=== PATIENT | male | born 1945 | race Hispanic/Latino ===

== ENCOUNTER 2017-07-21 19:59 | Observation (INO) | payer OTHER, MEDICARE ==
[~2017-07-21] VITALS: Ht 172.7 cm; Wt 85.0 kg
[2017-07-21] MEDS ORDERED: POTASSIUM CHLORIDE 20 MEQ ERTAB PO ONE (20:24)
[2017-07-21] MEDS ORDERED: SODIUM CHLORIDE 0.9% 1000ML 1,000 ML IV ONE (20:24)
[2017-07-21 20:37] LABS: HEMATOCRIT 39.8 % (42-54); MEAN CORPUSCULAR HEMOGLOBIN 30.2 pg (27.0-33.0); MEAN CORPUSCULAR HGB CONC 34.8 g/dL (32.0-36.0); MEAN CORPUSCULAR VOLUME 86.6 fL (79-99); PLATELET COUNT (AUTO) 247 K/uL (130-400); RED BLOOD CELL COUNT(AUTO) 4.59 MIL/uL (4.50-6.20); RED CELL DISTRIBUTION WIDTH 13.1 % (11.0-15.5); WHITE BLOOD COUNT (AUTO) 8.2 K/uL (4.8-10.8)
[2017-07-21 20:43] LABS: APPEARANCE,URINE Clear (CLEAR); BILIRUBIN,URINE Negative (NEGATIVE); COLOR,URINE Yellow (YELLOW); GLUCOSE, URINE (UA) 500 mg/dL (NEGATIVE); KETONES,URINE Negative (NEGATIVE); LEUKOCYTE ESTERASE ,URINE Negative (NEGATIVE); NITRATE,URINE Negative (NEGATIVE); OCCULT BLOOD,URINE Negative (NEGATIVE); PROTEIN,URINE Negative (NEGATIVE); UROBILINOGEN,URINE 0.2 mg/dL (0.2-1.0)
[2017-07-21 20:49] LABS: INR 0.88 (0.85-1.15); PARTIAL THROMBOPLASTIN TIME 26.4 SEC (26.3-35.5); PROTHROMBIN TIME 9.3 SEC (9.6-11.6)
[2017-07-21 21:05] LABS: BAND NEUTROPHILS % (MANUAL) 9 % (0-2); EOSINOPHILS % (MANUAL) 6 % (1-6); LYMPHOCYTES % (MANUAL) 20 % (22-44); METAMYELOCYTES % 1 % (0-0); MONOCYTES % (MANUAL) 13 % (2-9); REACTIVE LYMPHOCYTES 1 % (0-0); SEGMENTED NEUTROPHILS % 50 % (40-70)
[2017-07-21 21:06] LABS: MAN.DIFF COMMENT-IMPRESSION MANUAL DIFFERENTIAL
[2017-07-21 21:10] LABS: ALANINE AMINOTRANSFERASE 64 U/L (12-78); ALBUMIN 3.2 g/dL (3.5-5.0); ASPARTATE AMINOTRANSFERASE 38 U/L (10-37); BILIRUBIN,TOTAL 0.5 mg/dL (0.2-1.0); CARBON DIOXIDE 32 mmol/L (21-32); CHLORIDE 98 mmol/L (101-111); CREATINE KINASE MB 4.8 ng/mL (0.5-3.6); CREATINE KINASE, TOTAL 338 U/L (21-232); CREATININE 1.2 mg/dL (0.5-1.5); GLOMERULAR FILTR. RATE CALC 64 mL/min (>60); GLUCOSE,RANDOM 237 mg/dL (70-105); MYOGLOBIN 148 ng/mL (10-92); SODIUM SERUM 137 mmol/L (136-145); TOTAL PROTEIN, SERUM 6.7 g/dL (6.0-8.3); TROPONIN I < 0.04 ng/mL (0.00-0.06); UREA NITROGEN, BLOOD 18 mg/dL (7-18)
[2017-07-21 21:13] LABS: POTASSIUM 2.7 mmol/L (3.5-5.1)
[2017-07-21 21:53] LABS: BACTERIA,URINE Rare /HPF (None Seen); RBC,URINE None Seen /HPF (0-1); SQUAMOUS EPITHELIAL CELL,UR 0-2 /HPF (0-2); WBC,URINE 0-1 /HPF (0-1)
[2017-07-21] MEDS ORDERED: POTASSIUM CHLORIDE 20MEQ/100ML 100 ML IV PRN ×2 (23:15→23:45)
[2017-07-21] MEDS ORDERED: POTASSIUM CHLORIDE 20 MEQ ERTAB PO PRN (23:15)
[2017-07-21] MEDS ORDERED: POTASSIUM CHLORIDE 10% ELIXIR 20 MEQ/15 ML UDCUP PO PRN (23:15)
[2017-07-21] MEDS ORDERED: LIDOCAINE HCL-MPF 1% 2ML VIAL IJ PRN (23:15)
[2017-07-21] MEDS ORDERED: SODIUM CHLORIDE 0.9% 1000ML 1,000 ML IV SCH ×2 (23:15→23:43)
[2017-07-21] MEDS ORDERED: HYDRALAZINE HCL 20 MG/ML VIAL ONE (23:24)
[2017-07-21] MEDS ORDERED: HYDRALAZINE HCL 20 MG/ML VIAL IV PRN (23:45)
[2017-07-21] MEDS ORDERED: DEXTROSE 50%-WATER 50 ML DISP.SYRIN IV PRN (23:45)
[2017-07-21] MEDS ORDERED: GLUCAGON 1MG KIT 1 MG ML IM PRN (23:45)
[2017-07-21] MEDS: METRONIDAZOLE 500MG/100ML BAG 100 ML IV SCH (23:45)
[2017-07-21] MEDS ORDERED: ACETAMINOPHEN 325 MG TAB PO PRN ×2 (23:45)
[2017-07-21] MEDS ORDERED: ONDANSETRON HCL MDV 20ML 2 MG/ML VIAL IV PRN (23:45)
[2017-07-21] MEDS ORDERED: LIDOCAINE HCL-MPF 1% 2ML VIAL IVP PRN (23:45)
[2017-07-22] MEDS ORDERED: PRAV40TA3 PO (03:32)
[2017-07-22] MEDS ORDERED: LOSA1TAB54 PO (03:32)
[2017-07-22] MEDS ORDERED: ALLO100T PO (03:32)
[2017-07-22] MEDS ORDERED: AEC81 PO (03:32)
[2017-07-22] MEDS ORDERED: CHLO25TA23 PO (03:32)
[2017-07-22] MEDS ORDERED: METO100T14 PO (03:32)
[2017-07-22] MEDS ORDERED: METO50TA18 PO (03:32)
[2017-07-22] MEDS ORDERED: METF10004 PO (03:32)
[2017-07-22] MEDS ORDERED: DIPH1TAB PO (03:32)
[2017-07-22 04:30] VITALS: BP 167/86
[2017-07-22 06:16] LABS: HEMATOCRIT 37.8 % (42-54); MEAN CORPUSCULAR HEMOGLOBIN 30.6 pg (27.0-33.0); MEAN CORPUSCULAR HGB CONC 35.5 g/dL (32.0-36.0); MEAN CORPUSCULAR VOLUME 86.2 fL (79-99); PLATELET COUNT (AUTO) 221 K/uL (130-400); RED BLOOD CELL COUNT(AUTO) 4.38 MIL/uL (4.50-6.20); RED CELL DISTRIBUTION WIDTH 13.2 % (11.0-15.5); WHITE BLOOD COUNT (AUTO) 6.7 K/uL (4.8-10.8)
[2017-07-22 06:46] LABS: ALANINE AMINOTRANSFERASE 55 U/L (12-78); ALBUMIN 2.8 g/dL (3.5-5.0); ASPARTATE AMINOTRANSFERASE 34 U/L (10-37); BILIRUBIN,TOTAL 0.4 mg/dL (0.2-1.0); CARBON DIOXIDE 34 mmol/L (21-32); CHLORIDE 105 mmol/L (101-111); CREATINE KINASE MB 3.5 ng/mL (0.5-3.6); CREATINE KINASE, TOTAL 242 U/L (21-232); GLOMERULAR FILTR. RATE CALC 79 mL/min (>60); GLUCOSE,RANDOM 170 mg/dL (70-105); MYOGLOBIN 92 ng/mL (10-92); SODIUM SERUM 144 mmol/L (136-145); TROPONIN I < 0.04 ng/mL (0.00-0.06); UREA NITROGEN, BLOOD 12 mg/dL (7-18)
[2017-07-22 07:17] LABS: POTASSIUM 2.9 mmol/L (3.5-5.1)
[2017-07-22] MEDS: INSULIN HUMULIN R 100 UNIT/ML 3ML SQ SCH ×4 (07:30→21:00)
[2017-07-22 08:20] VITALS: BP 157/93
[2017-07-22] MEDS ORDERED: MAGNESIUM 2GM PREMIX 50ML 50 ML IV SCH (09:00)
[2017-07-22] MEDS: PANTOPRAZOLE SODIUM 40 MG TABLET.DR PO SCH (09:07)
[2017-07-22] MEDS: POTASSIUM CHLORIDE 10% ELIXIR 20 MEQ/15 ML UDCUP PO PRN ×3 (09:07→18:16)
[2017-07-22] MEDS: METRONIDAZOLE 500MG/100ML BAG 100 ML IV SCH ×2 (09:08→18:09)
[2017-07-22 11:33] VITALS: BP 155/90
[2017-07-22] MEDS: ALLOPURINOL 100 MG TABLET PO SCH (11:55)
[2017-07-22] MEDS: LOSARTAN/HYDROCHLOROTHIAZIDE 50-12.5MG TABLET PO SCH (11:56)
[2017-07-22] MEDS: NS-20 MEQ KCL 1000ML 1,000 ML IV SCH (11:56)
[2017-07-22 15:40] VITALS: BP 164/76
[2017-07-22] MEDS ORDERED: METOPROLOL TARTRATE 50 MG TAB PO SCH (17:00)
[2017-07-22] MEDS: METFORMIN HCL 500 MG TABLET PO SCH (18:09)
[2017-07-22 19:32] VITALS: BP 148/90
[2017-07-22] MEDS ORDERED: ATORVASTATIN CALCIUM 10 MG TABLET PO SCH (21:00)
[2017-07-22] MEDS ORDERED: POTASSIUM CHLORIDE 20 MEQ in SODIUM CHLORIDE 0.9% 1000ML 1,000 ML IV SCH (23:43)
[2017-07-23] MEDS: POTASSIUM CHLORIDE 20 MEQ ERTAB PO PRN ×4 (00:10→15:13)
[2017-07-23] MEDS: METRONIDAZOLE 500MG/100ML BAG 100 ML IV SCH ×2 (00:11→07:55)
[2017-07-23 00:45] VITALS: BP 144/85
[2017-07-23 04:00] VITALS: BP 148/95
[2017-07-23] MEDS: NS-20 MEQ KCL 1000ML 1,000 ML IV SCH (04:22)
[2017-07-23 05:49] LABS: MAGNESIUM 1.7 mg/dL (1.80-2.40); POTASSIUM 3.3 mmol/L (3.5-5.1)
[2017-07-23] MEDS: INSULIN HUMULIN R 100 UNIT/ML 3ML SQ SCH ×2 (06:43→12:32)
[2017-07-23 07:32] VITALS: BP 154/93
[2017-07-23] MEDS: METFORMIN HCL 500 MG TABLET PO SCH (07:55)
[2017-07-23] MEDS ORDERED: METOPROLOL TARTRATE 50 MG TAB PO SCH (09:00)
[2017-07-23] MEDS ORDERED: ASPIRIN 81 MG EC TAB PO SCH (09:00)
[2017-07-23] MEDS: LOSARTAN/HYDROCHLOROTHIAZIDE 50-12.5MG TABLET PO SCH (09:06)
[2017-07-23] MEDS: PANTOPRAZOLE SODIUM 40 MG TABLET.DR PO SCH (09:07)
[2017-07-23] MEDS: ALLOPURINOL 100 MG TABLET PO SCH (09:07)
[2017-07-23] MEDS ORDERED: LOSA100T29 PO (10:01)
[2017-07-23] MEDS ORDERED: POTA10TA14 PO (10:01)
[2017-07-23] MEDS ORDERED: CHLORPROMAZINE HCL 25 MG/ML 1ML AMP IM SCH (10:15)
[2017-07-23 11:43] VITALS: BP 159/92
[2017-07-23 14:07] LABS: CREATININE 1.1 mg/dL (0.5-1.5); POTASSIUM 3.5 mmol/L (3.5-5.1)
== END 2017-07-23 16:30 | disposition home or self-care (01) ==
LOC: EDH 19:59 → EDHIP 21:48 → 3DH 07-22 02:11
PROVIDERS: ADMIT Internal Medicine; ATTEND Internal Medicine
DX: E87.6 Hypokalemia (principal); E78.5 Hyperlipidemia, unspecified; I10 Essential (primary) hypertension; E11.9 Type 2 diabetes mellitus without complications; K52.9 Noninfective gastroenteritis and colitis, unspecified; R06.6 Hiccough
CPT/HCPCS: 36415 ×3; 71045; 80048 ×2; 80053 ×2; 81001; 82550 ×2; 82553 ×2; 82948 ×5; 83605 ×2; 83735 ×2; 83874 ×2; 84132; 84484 ×2; 85025; 85027; 85610; 85730; 87040 ×2; 87088; 87507; 93005; 96361; 96365; 96366 ×2; 96367; 96368; 96372; 99285; G0378 ×43; J0360; J1815 ×2; J3230; J3475; J3480; J3490 ×5; J7030 ×2; Q0161; C9113

== ENCOUNTER 2018-07-13 19:19 | Emergency (ER) | payer OTHER, MEDICARE ==
[~2018-07-13 19:19] MED LIST: AEC81 PO; ALLO100T PO; CHLO25TA23 PO; DIPH1TAB PO; LOSA100T58 PO; METF-446 PO; METO100T14 PO; METO50TA18 PO; POTA10TA14 PO; PRAV40TA3 PO
[2018-07-13] MEDS ORDERED: IBUPROFEN 600 MG TABLET ONE (19:51)
== END 2018-07-13 20:14 | disposition home or self-care (01) ==
LOC: EDH 19:19
DX: S83.8X2A Sprain of other specified parts of left knee, initial encounter (principal); M17.12 Unilateral primary osteoarthritis, left knee; E11.9 Type 2 diabetes mellitus without complications; E78.5 Hyperlipidemia, unspecified; I10 Essential (primary) hypertension; X50.1XXA Overexertion from prolonged static or awkward postures, initial encounter; Y93.89 Activity, other specified; Y92.098 Other place in other non-institutional residence as the place of occurrence of the external cause; Y99.8 Other external cause status
CPT/HCPCS: 73562

== ENCOUNTER → 2018-10-09 | Outpatient (CLI) | payer OTHER, MEDICARE ==
[2018-10-09 14:05] VITALS: BP 156/84
== END | disposition home or self-care (01) ==
LOC: WHH 08:30
PROVIDERS: ATTEND Family Medicine
DX: L03.116 Cellulitis of left lower limb (principal); E11.9 Type 2 diabetes mellitus without complications; I10 Essential (primary) hypertension; I25.10 Atherosclerotic heart disease of native coronary artery without angina pectoris; E78.5 Hyperlipidemia, unspecified; M17.12 Unilateral primary osteoarthritis, left knee; M10.9 Gout, unspecified; G47.33 Obstructive sleep apnea (adult) (pediatric)
CPT/HCPCS: G0463

== ENCOUNTER 2018-10-24 08:25 | Outpatient (CLI) | payer OTHER, MEDICARE ==
[2018-10-24 08:59] VITALS: BP 151/88
== END 2018-10-24 13:59 | disposition home or self-care (01) ==
LOC: WHH 08:25
PROVIDERS: ATTEND Family Medicine
DX: L03.116 Cellulitis of left lower limb (principal); E11.628 Type 2 diabetes mellitus with other skin complications; L98.8 Other specified disorders of the skin and subcutaneous tissue; I10 Essential (primary) hypertension; I25.10 Atherosclerotic heart disease of native coronary artery without angina pectoris; E78.5 Hyperlipidemia, unspecified; G47.33 Obstructive sleep apnea (adult) (pediatric); M10.9 Gout, unspecified; M17.12 Unilateral primary osteoarthritis, left knee
CPT/HCPCS: G0463

== ENCOUNTER → 2018-12-28 | Outpatient (CLI) | payer OTHER, MEDICARE | END | disposition home or self-care (01) | LOC: SHCH 15:42 | PROVIDERS: ATTEND Internal Medicine Cardiovascular Disease | DX: I35.8 Other nonrheumatic aortic valve disorders (principal); I25.10 Atherosclerotic heart disease of native coronary artery without angina pectoris; I10 Essential (primary) hypertension; E11.9 Type 2 diabetes mellitus without complications; E78.5 Hyperlipidemia, unspecified | CPT/HCPCS: 93306 ==

== ENCOUNTER 2023-08-26 12:34 | Emergency (ER) | payer MEDICARE ==
[~2023-08-26] VITALS: Ht 172.7 cm; Wt 82.6 kg
[~2023-08-26 12:34] MED LIST changes: -CHLO25TA23 PO; +CHLO25TA68 PO; -LOSA100T58 PO; +LOSA100T59 PO
[2023-08-26] MEDS: MORPHINE 4 MG SYG IVP ONE (13:25)
[2023-08-26] MEDS: ONDANSETRON 4MG INJ IVP ONE (13:25)
[2023-08-26 13:43] LABS: BASOPHILS # (AUTO) 0.05 K/uL (0.00-0.20); BASOPHILS % (AUTO) 0.6 % (0.0-5.0); EOSINOPHILS # (AUTO) 0.27 K/uL (0.00-0.70); EOSINOPHILS % (AUTO) 3.5 % (0.0-8.0); HEMATOCRIT 44.4 % (42-54); IMMATURE GRANULOCYTE ABSOLUTE 0.03 K/uL (0-1); LYMPHOCYTES # (AUTO) 1.3 K/uL (1.0-4.8); MEAN CORPUSCULAR HEMOGLOBIN 28.9 pg (27.0-33.0); MEAN CORPUSCULAR HGB CONC 33.6 g/dL (32.0-36.0); MONOCYTES # (AUTO) 0.7 K/uL (0.1-1.0); MONOCYTES % (AUTO) 9.6 % (3.0-13.0); NEUTROPHILS # (AUTO) 5.3 K/uL (1.8-7.7); NEUTROPHILS % (AUTO) 68.9 % (40.0-77.0); PLATELET COUNT (AUTO) 195 K/uL (130-400); RED BLOOD CELL COUNT(AUTO) 5.16 MIL/uL (4.50-6.20); RED CELL DISTRIBUTION WIDTH 12.9 % (11.0-15.5); WHITE BLOOD COUNT (AUTO) 7.7 K/uL (4.8-10.8)
[2023-08-26 14:14] LABS: POTASSIUM 3.1 mmol/L (3.5-5.1)
[2023-08-26 14:28] LABS: APPEARANCE,URINE CLEAR (CLEAR); BILIRUBIN,URINE NEGATIVE (NEGATIVE); COLOR,URINE LIGHT-YELLOW (YELLOW); GLUCOSE, URINE (UA) >=1000 mg/dL (NEGATIVE); KETONES,URINE NEGATIVE (NEGATIVE); LEUKOCYTE ESTERASE ,URINE NEGATIVE Leu/uL (NEGATIVE); NITRATE,URINE NEGATIVE (NEGATIVE); OCCULT BLOOD,URINE NEGATIVE (NEGATIVE); PROTEIN,URINE 20 mg/dL (NEGATIVE); UROBILINOGEN,URINE 0.2 mg/dL (0.2-1.0)
[2023-08-26 14:33] LABS: ADD UA MICROSCOPIC YES
[2023-08-26 14:34] LABS: RBC,URINE 0-1 /HPF (0-1); SQUAMOUS EPITHELIAL CELL,UR RARE /HPF (0-2); WBC,URINE 0-1 /HPF (0-1)
[2023-08-26 15:15] VITALS: BP 170/84; PULSE 63; RESP 17; O2SAT 97
[2023-08-26] MEDS ORDERED: NAPR-1196 PO (15:37)
[2023-08-26] MEDS: POTASSIUM CHLORIDE 10% ELIXIR 20 MEQ/15 ML UDCUP PO ONE (15:48)
== END 2023-08-26 16:00 | disposition home or self-care (01) ==
LOC: EDH 12:34
DX: S20.211A Contusion of right front wall of thorax, initial encounter (principal); E87.6 Hypokalemia; E11.9 Type 2 diabetes mellitus without complications; M19.90 Unspecified osteoarthritis, unspecified site; I10 Essential (primary) hypertension; Z79.899 Other long term (current) drug therapy; Z79.84 Long term (current) use of oral hypoglycemic drugs; Z79.82 Long term (current) use of aspirin; W18.39XA Other fall on same level, initial encounter; Y93.89 Activity, other specified; Y92.89 Other specified places as the place of occurrence of the external cause; Y99.8 Other external cause status
CPT/HCPCS: 99285; 70450; 96374; 96375; 84484; 80048; 85025; 81001; 36415; 72125; 71250; 74176; 93005; J2405; J2270

== ENCOUNTER 2025-01-07 18:02 | Emergency (ER) | payer MEDICARE, MEDICAID ==
[~2025-01-07] VITALS: Ht 172.7 cm; Wt 83.0 kg
[~2025-01-07 18:02] MED LIST changes: +NAPR-1196 PO; -PRAV40TA3 PO; +PRAV40TA62 PO
--- NOTE | 2025-01-07 18:10 | ERN ---
ED Note History of Present Illness Stated Complaint: ELEVATED BP, HEADACHE Chief Complaint: Headache Time Seen by MD: 18:05 Dictation: PATIENT IS A 79-YEAR-OLD MALE HERE WITH HIS WITH COMPLAINTS OF AN OCCIPITAL HEADACHE BILATERAL ONSET ON AWAKENING THESE MORNING HE SAID HE WHEN HE CHECKED HIS BLOOD PRESSURE AT HOME HIS BLOOD PRESSURE WAS IN THE 150S AND 160S THAT HE THOUGHT THIS WAS TOO HIGH. HE SAID HE HAD SEEN HIS ANCHOR TACKER'S LAST WEEK WOULD STOPPED METOPROLOL HOWEVER HE TOOK ONE THIS MORNING BECAUSE HE FELT LIKE HE NEEDED IT. HE DID NOT TAKE ANYTHING FOR PAIN PRIOR TO ARRIVAL. HE IS ALERT AND ORIENTED X4 SPEECH IS CLEAR NIH IS 0. THE HEADACHE WAS NOT A THUNDERBEAT HEADACHE. CURRENT BLOOD PRESSURE 157/88 IN TRIAGE Allergies: Coded Allergies: No Known Allergies (Unverified Allergy, 09/08/12) Home Meds Active Scripts Naproxen (Naproxen) 250 Mg Tablet, 250 MG PO BID for 5 Days, #10 TAB Prov:ARLINE MENESES MD 08/26/23 Potassium Chloride (Potassium Chloride) 10 Meq Tablet.er, 10 MEQ PO DAILY, #30 TAB Prov:BINTA TORRES MD 07/23/17 Losartan Potassium (Losartan Potassium) 100 Mg Tablet, 100 MG PO DAILY, #30 TAB Prov:BINTA TORRES MD 07/23/17 Reported Medications Diphenoxylate HCl/Atropine (Lomotil Tablet) 1 Each Tablet, 1 EACH PO AD PRN for AFTER EACH LOOSE STOOL, TAB 07/22/17 Chlorpromazine HCl (Chlorpromazine HCl) 25 Mg Tablet, 25 MG PO Q8HPRN PRN for NAUSEA/VOMITING, TAB 07/22/17 Pravastatin Sodium (Pravastatin Sodium) 40 Mg Tablet, 40 MG PO HS, TAB 07/22/17 Allopurinol (Allopurinol) 100 Mg Tablet, 100 MG PO DAILY, TAB 07/22/17 Metformin HCl (Metformin HCl) 1,000 Mg Tablet, 1000 MG PO BIDMEALS, TAB 07/22/17 Metoprolol Tartrate (Metoprolol Tartrate) 50 Mg Tablet, 50 MG PO DAILYDINNER, TAB 07/22/17 Metoprolol Tartrate (Metoprolol Tartrate) 100 Mg Tablet, 100 MG PO DAILY, TAB 07/22/17 Aspirin (ASPIRIN 81 MG ECTAB) 81 Mg Ectab, 81 MG PO DAILY, TAB.EC 07/22/17 Past Medical History Past Medical History: Arthritis, Diabetes-Type II, Heart Disease, Hypertension Surgical History: None Surgical History Other: HEART CATH RN Note Reviewed/Agreed w/PFSH: Yes Review of System Dictation CONSTITUTIONAL: NEGATIVE EXCEPT FOR HPI HEAD/FACE: NEGATIVE EXCEPT FOR HPI EENT: NEGATIVE EXCEPT FOR HPI RESPIRATORY: NEGATIVE EXCEPT FOR HPI GASTROINTESTINAL/ABDOMINAL: NEGATIVE EXCEPT FOR HPI GENITOURINARY: NEGATIVE EXCEPT FOR HPI MUSCULOSKELETAL: NEGATIVE EXCEPT FOR HPI INTEGUMENTARY: NEGATIVE EXCEPT FOR HPI NEUROLOGICAL/PSYCH: NEGATIVE EXCEPT FOR HPI OCCIPITAL HEADACHE HEMATOLOGIC/LYMPHATIC: NEGATIVE EXCEPT FOR HPI ALL SYSTEMS NEGATIVE, EXCEPT NOTED ABOVE. 13 POINT REVIEW OF SYSTEMS ASSESSED AND ALL NEGATIVE EXCEPT FOR ABOVE. Initial Vital Sign VS Vital Signs Date Time Temp Pulse Resp B/P (MAP) Pulse Ox O2 Delivery O2 Flow Rate FiO2 01/07/25 18:03 97.9 85 16 156/97 100 Room Air 0 Physical Exam Dictation EXAM VITAL SIGNS REVIEWED GENERAL APPEARANCE: ALERT, ORIENTED X 3, MILD ACUTE DISTRESS, WELL DEVELOPED, NOURISHED. HEAD AND FACE: NON-TRAUMATIC. EYES: PERRL, PINK CONJUNCTIVAS, EYELID NO TRAUMA, ANTERIOR CHAMBER WITH ARCUS SENILIS. EARS: PINNAS INTACT AND NO SIGNS OF TRAUMA OR ERYTHEMA EAR CANALS CLEAR AND NO DISCHARGE TM NO ERYTHEMA NOSE: NO DISCHARGE, NO BLEEDING. OROPHARYNX: MOUTH NORMAL, TONGUE PINK, PHARYNX CLEAR,NO ERYTHEMA, TONSILS NO EXUDATES, NO ABSCESSES NOTED, MUCOUS MEMBRANE MOIST NECK: SUPPLE, NON-TENDER, NO THYROMEGALY, NO MASSES, NO JVD, NO BRUITS BREAST:DEFERRED CHEST:NO TENDERNESS, NO CREPITUS, NO PARADOXICAL MOVEMENT, NO RETRACTIONS LUNGS:CLEAR, WELL-VENTILATED, SYMMETRIC, NO RALES, NO WHEEZING, NO RHONCHI, NO STRIDOR, GOOD BREATH SOUNDS BILATERALLY HEART: REGULAR RATE, REGULAR RHYTHM, NO MURMUR, NO GALLOPS VASCULAR: NO PERIPHERAL EDEMA, ABDOMEN: SOFT, POSITIVE BOWEL SOUNDS, NONDISTENDED, NO GUARDING, NONTENDER, NO REBOUND, NO MASSES NO HEPATOMEGALY, NO SPLENOMEGALY, NO ALVARADO'S SIGN, NO HERNIAS. RECTAL: DEFERRED GENITAL: DEFERRED NEUROLOGICAL: NORMAL SPEECH, MOTOR FUNCTION INTACT, SENSORY FUNCTION INTACT NIH IS 0 MUSCULOSKELETAL: NECK NONTENDER, FULL RANGE OF MOTION, BACK NONTENDER, FULL RANGE OF MOTION, EXTREMITIES: NONTENDER, FULL RANGE OF MOTION SKIN: COLOR PINK, DRY, NO TURGOR, NO RASH, NO LACERATIONS, NO ABRASIONS, NO CONTUSIONS. LYMPHATIC: DEFERRED Results (Laboratory/Radiology) Laboratory/Radiology Laboratory Tests Test 01/07/25 18:14 White Blood Count 9.4 K/uL (4.8-10.8) Red Blood Count 4.94 MIL/uL (4.50-6.20) Hemoglobin 14.8 g/dL (14.0-18.0) Hematocrit 44.7 % (42-54) Mean Corpuscular Volume 90.5 fL (79-99) Mean Corpuscular Hemoglobin 30.0 pg (27.0-33.0) Mean Corpuscular Hemoglobin Concent 33.1 g/dL (32.0-36.0) Red Cell Distribution Width 12.7 % (11.0-15.5) Platelet Count 274 K/uL (130-400) Mean Platelet Volume 11.8 fL (7.5-10.5) H Immature Granulocyte % (Auto) 0.4 % (0-1) Neutrophils (%) (Auto) 65.1 % (40.0-77.0) Lymphocytes (%) (Auto) 18.4 % (21.0-51.0) L Monocytes (%) (Auto) 10.7 % (3.0-13.0) Eosinophils (%) (Auto) 4.9 % (0.0-8.0) Basophils (%) (Auto) 0.5 % (0.0-5.0) Neutrophils # (Auto) 6.1 K/uL (1.8-7.7) Lymphocytes # (Auto) 1.7 K/uL (1.0-4.8) Monocytes # (Auto) 1.0 K/uL (0.1-1.0) Eosinophils # (Auto) 0.46 K/uL (0.00-0.70) Basophils # (Auto) 0.05 K/uL (0.00-0.20) Absolute Immature Granulocyte (auto 0.04 K/uL (0-1) Nucleated Red Blood Cells 0.0 % (0.0-0.19) Sodium Level 138 mmol/L (136-145) Potassium Level 4.0 mmol/L (3.5-5.1) Chloride Level 101 mmol/L (101-111) Carbon Dioxide Level 26 mmol/L (21-32) Blood Urea Nitrogen 27 mg/dL (7-18) H Creatinine 0.9 mg/dL (0.5-1.3) Glomerular Filtration Rate Calc 88 mL/min (>90) Random Glucose 135 mg/dL (70-105) H Total Calcium 9.2 mg/dL (8.5-10.1) Troponin I High Sensitivity 6 ng/L (4-75) Labs Reviewed?: Yes EKG Comment: 1807/EKG SINUS RHYTHM/HEART RATE 82/LEFT VENTRICULAR HYPERTROPHY/CHRONIC CHANGES IN INFERIOR LEADS TWO THREE AVF ED Course ED Course Orders Procedure Category Date Status Time Acetaminophen 500mg PHA 01/07/25 Complete Tab (Tylenol 500mg T 18:30 Cbc With Differential LAB 01/07/25 Complete 18:07 12 Lead Ekg Tracing- EKG 01/07/25 Logged Technical 18:07 Troponin I High LAB 01/07/25 Complete Sensitivity 18:07 Basic Metabolic Panel LAB 01/07/25 Complete 18:07 Current Medications Medications (Trade) Dose Ordered Sig/Giuliana Route PRN Reason Start Time Stop Time Status Last Admin Dose Admin Acetaminophen (TYLenol 500MG TAB) 1,000 mg ONCE ONCE PO 01/07/25 18:30 01/07/25 18:31 DC 01/07/25 20:32 Vital Signs Date Time Temp Pulse Resp B/P (MAP) Pulse Ox O2 Delivery O2 Flow Rate FiO2 01/07/25 18:03 97.9 85 16 156/97 100 Room Air 0 2135/BLOOD PRESSURE 156/97. PATIENT NEUROLOGICALLY INTACT HE WILL BE DISCHARGED HOME WITH DIAGNOSIS OF BENIGN HYPERTENSION INSTRUCTED TO FOLLOW UP WITH HIS PRIMARY CARE DOCTOR IN THE NEXT 1-2 DAYS CONTINUE HIS MEDICATIONS AT HOME. HEART Score Response (Comments) Value EKG: Repolarization changes 1 Age: > 65yrs (+2) 2 Risk Factors: 1-2 risk factors (+1) 1 Initial Troponin: Normal limit (0) 0 Total 4 Medical Decision Making MDM MDM: DIFFERENTIAL DIAGNOSIS: UNCONTROLLED HYPERTENSION/HYPERTENSIVE CRISIS/ELECTROLYTE IMBALANCE/DEHYDRATION/ACS/AMI/ARRHYTHMIA RATIONALE: TESTS CONSIDERED AND ORDERED SECONDARY TO SHARED DECISION MAKING INCLUDE: EKG/LABS PREVIOUS OUTSIDE RECORDS REVIEWED: OLD ER VISITS. RISK OF COMPLICATION AND/OR MORBIDITY OR MORTALITY OF PATIENT MANAGEMENT: NONE MEDICATIONS-PER MEDICATION RECONCILIATION NEED FOR HOSPITALIZATION: PATIENT DOES NOT MEET CRITERIA FOR HOSPITALIZATION. NONE NEED FOR EMERGENCY MAJOR/MINOR SURGERY: NO THERE ARE NO SOCIAL CONCERNS WITH THIS PATIENT. PRESCRIPTION DRUG MANAGEMENT NONE PRESCRIPTIONS WILL INCLUDE SYMPTOMATIC CARE PATIENT'S PRIOR EXTERNAL MEDICAL RECORDS FROM OTHER ER VISITS WERE REVIEWED BY ME INDICATED. PRIOR TESTING AND RESULTS FROM PREVIOUS VISITS WERE REVIEWED. PRIOR TESTS WERE TAKEN INTO ACCOUNT WITH MEDICAL DECISION MAKING AND RESOURCE UTILIZATION, INDEPENDENT HISTORIAN/HISTORIANS WERE USED TO OBTAIN COMPLETE MEDICAL HISTORY. I INDEPENDENTLY INTERPRETED THE TEST THAT WERE PERFORMED, RESULTS WERE REVIEWED BY ME AND CONSIDERED FINDINGS ON RADIOLOGY IF ORDERED. MEDICAL MANAGEMENT AND EXAMINATION INTERPRETATION DISCUSSIONS WERE HAD BY ME WITH OTHER QUALIFIED HEALTHCARE PROFESSIONALS INDICATED FOR THE PATIENT'S CARE. DX & DISP Disposition: Discharge Departure Impression: Primary Impression: Accelerated hypertension Additional Impressions: Hyperglycemia, Mild dehydration Condition: Stable Additional Instructions: FOLLOW-UP WITH PRIMARY CARE PROVIDER IN 1 TO 2 DAYS. TAKE MEDICATIONS DIRECTED HERE IN THE EMERGENCY ROOM. OKAY TO CONTINUE HOME MEDICATIONS UNLESS OTHERWISE DISCUSSED DURING YOUR VISIT IN THE EMERGENCY ROOM TODAY. RETURN TO YOUR NEAREST EMERGENCY ROOM IF SYMPTOMS WORSEN OR IF THERE IS NO IMPROVEMENT. CALL 911 IF YOU NEED IMMEDIATE ASSISTANCE. TAKE TYLENOL OR MOTRIN [id number] NEEDED AND IF NO CONTRAINDICATIONS ARE PRESENT. INCREASE ORAL HYDRATION. A WOUND CULTURE OR URINE CULTURE WAS ORDERED HERE IN THE EMERGENCY ROOM DEPARTMENT PLEASE FOLLOW-UP WITH PRIMARY CARE PROVIDER AND ADVISE THEM TO GET REPEAT PORTS FROM OUR FACILITY. IF YOU HAD ANY ANASTASIIA WRAP/SPLINTS SLADE T WERE APPLIED HERE, PLEASE DO NOT REMOVE THEM UNTIL YOU SEE YOUR PRIMARY CARE OR SPECIALTY. CONTINUE YOUR BLOOD PRESSURE MEDICATIONS AT HOME. SEE YOUR PRIMARY CARE DOCTOR IN THE NEXT ONE TWO DAYS FOR FOLLOW UP AND MANAGEMENT. TAKE TYLENOL [id number] NEEDED FOR HEADACHE. Referrals: JUAN MANUEL STERLING MD (PCP) Time of Disposition: 21:37 I have reviewed the case, and I agree with, Diagnosis and Plan MICHELLE CAMPOP Jan 07, 2025 18:10
[2025-01-07 18:25] LABS: IMMATURE GRANULOCYTE ABSOLUTE 0.04 K/uL (0-1); NUCLEATED RED BLOOD CELLS 0.0 % (0.0-0.19); PLATELET COUNT (AUTO) 274 K/uL (130-400); RED BLOOD CELL COUNT(AUTO) 4.94 MIL/uL (4.50-6.20); RED CELL DISTRIBUTION WIDTH 12.7 % (11.0-15.5); WHITE BLOOD COUNT (AUTO) 9.4 K/uL (4.8-10.8)
[2025-01-07 18:34] LABS: CREATININE 0.9 mg/dL (0.5-1.3); GLOMERULAR FILTR. RATE CALC 88.0 mL/min (>90); GLUCOSE,RANDOM 135.0 mg/dL (70-105); SODIUM SERUM 138.0 mmol/L (136-145); UREA NITROGEN, BLOOD 27.0 mg/dL (7-18)
[2025-01-07 22:00] VITALS: BP 157/94; PULSE 82; RESP 16; TEMP 98; O2SAT 100
--- NOTE | 2025-01-08 07:18 | EKG ---
[facility] Test Date: 2025-01-07 Test Time: 18:07:44 Pat Name: KT VANCE Department: ED Room: Gender: M Design/Animation Instructor: [id number] : 1945 Requested By: MICHELLE CAMPO Order Number: [id number] Reading MD: Fredy Navarrete Measurements Intervals [place] Rate: 82 P: 8 TX: 170 QRS: -42 QRSD: 115 T: -26 QT: 380 QTc: 444 Interpretive Statements Sinus rhythm Nonspecific IVCD with LAD Probable left ventricular hypertrophy Inferior infarct, old Compared to ECG 08/26/2023 13:14:46 Myocardial infarct finding now present Electronically Signed On 01-08-2025 19:22:06 HEATING PLANT SUPERINTENDENT by Fredy Navarrete Please click the below link to view image of tracing.
== END 2025-01-07 22:14 | disposition home or self-care (01) ==
LOC: EDH 18:02
DX: I11.9 Hypertensive heart disease without heart failure (principal); E86.0 Dehydration; E11.65 Type 2 diabetes mellitus with hyperglycemia; I21.9 Acute myocardial infarction, unspecified; M19.90 Unspecified osteoarthritis, unspecified site; Z79.82 Long term (current) use of aspirin; Z79.899 Other long term (current) drug therapy
CPT/HCPCS: 36415; 80048; 84484; 85025; 93005; 99284